=== PATIENT | male | born 1970 | race African-American/Black ===

== ENCOUNTER 2021-05-06 14:59 | Inpatient (IN) | payer MEDICARE ==
[~2021-05-06] VITALS: Ht 175.3 cm; Wt 59.8 kg
[2021-05-06 15:49] LABS: BASO # 0.1 x10^3/uL (0.0-0.2); BASO % 1 % (0-3); EOS # 0.3 x10^3/uL (0.0-0.7); EOS % 3 % (0-3); HEMATOCRIT 21.4 % (39.0-53.0); LYMPH # 0.3 x10^3/uL (1.0-4.8); LYMPH % 3 % (24-48); MEAN CORPUSCULAR HEMOGLOBIN 26 pg (25-35); MEAN CORPUSCULAR HGB CONC 29 g/dL (31-37); MEAN CORPUSCULAR VOLUME 88 fL (79-100); MONO # 0.5 x10^3/uL (0.0-1.1); MONO % 6 % (0-9); NEUT # 8.3 x10^3/uL (1.8-7.7); NEUT % 88 % (31-73); PLATELET COUNT 402 x10^3/uL (140-400); RED BLOOD COUNT 2.44 x10^6/uL (4.30-5.70); RED CELL DISTRIBUTION WIDTH 19.1 % (11.5-14.5); WHITE BLOOD COUNT 9.5 x10^3/uL (4.0-11.0)
[2021-05-06 15:52] LABS: HEMOGLOBIN 6.2 g/dL (13.0-17.5)
[2021-05-06 15:55] LABS: ALBUMIN 2.5 g/dL (3.4-5.0); ALBUMIN/GLOBULIN RATIO 0.8 (1.0-1.7); CALCIUM 8.5 mg/dL (8.5-10.1); CREATININE 1.4 mg/dL (0.7-1.3); POTASSIUM 4.6 mmol/L (3.5-5.1); TOTAL BILIRUBIN 0.2 mg/dL (0.2-1.0); TOTAL PROTEIN 5.7 g/dL (6.4-8.2)
--- NOTE | 2021-05-06 16:07 | RAD ---
EXAM: Chest, single view. HISTORY: Shortness of air. COMPARISON: None. FINDINGS: A frontal view of the chest is obtained. There is diffuse interstitial infiltrate. There is no consolidation, pleural effusion or pneumothorax. There is a prominent cardiac silhouette. IMPRESSION: Diffuse interstitial infiltrate. Electronically signed by: Kerri Amador MD (05/06/2021 4:04 PM) [facility]
--- NOTE | 2021-05-06 16:20 | PDOC1 ---
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 He notes due to his recurrent epistaxis has a blood transfusion every 2 weeks. He last had his hemoglobin checked in [place] about the first week of April and it was 7.2 at that time. He denie s any rectal bleeding, nausea, vomiting, diarrhea, chest pain, palpitations, fever, cough, extremity edema, hematuria, back pain, rash, or body aches. Patient states he feels like he does when his hemoglobin is too low. He currently denies any pain. He has had extensive work-up and does not have any pulmonary or gastrointestinal telangiectasias, only nasal. He does not know his hepatic status. He notes he was going to start on bevacizumab therapy at [facility] but while in [place] he tested positive for COVID-19 on 03/30/2021. He notes he is fully vaccinated and had his booster but he was fairly symptomatic for several days did not require hospital admission or become hypoxic and he has been recuperating with his sister in [place] since then. He is originally from [facility]. 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 He does note at age 14 he started developing seizures and did have a left frontoparietal craniotomy and notes he has not had a seizure since then. Was never on antiepileptics as an adult. WBC 9.5, Hb 6.2, platelets 402, NA 145, K4.6, BUN 18, CR 1.4, glucose 103, calcium 8.5, bilirubin 0.2, AST 13, ALT 18, alkaline phosphatase 58, albumin 2.5, high-sensitivity troponin is 15 EKG appears sinus rate of 88 bpm some PVCs leftward axis no ST segment elevations or T WI QTc 446 otherwise normal intervals. Admitted for further care Past Medical History ENT: Other (Epistaxis, teleangiectasias) Past Surgical History Past Surgical History Left craniotomy 1985, Nasal surgery x8 Family History Family History HHT in his daughter Family History: Hypertension Social History Smoke: <1 pack per day ALCOHOL: none Drugs: None Allergies Allergies: Coded Allergies: No Known Drug Allergies (Unverified , 05/06/21) ROS General: YES: Fatigue, Malaise; No: Chills, Night Sweats, Appetite, Other PSYCHOLOGICAL ROS: No: Anxiety, Behavioral Disorder, Concentration difficultie, Decreased libido, Depression, Disorientation, Hallucinations, Hostility, Irritablity, Memory difficulties, Mood Swings, Obsessive thoughts, Physical abuse, Sexual abuse, Sleep disturbances, Suicidal ideation, Other Eyes: No Blurry vision, No Decreased vision, No Double vision, No Dry eyes, No Excessive tearing, No Eye Pain, No Itchy Eyes, No Loss of vision, No Photophobia, No Scotomata, No Uses contacts, No Uses glasses, No Other HEENT: YES: Nasal congestion, Nasal discharge, Epistaxis; No: Heacaches, Visual Changes, Hearing change, Oral lesions, Sinus pain, Sore Throat, Sneezing, Snoring, Tinnitus, Vertigo, Vocal changes, Other ALLERGY AND IMMUNOLOGY: No: Hives, Insect Bite Sensitivity, Itchy/Watery Eyes, Nasal Congestion, Post Nasal Drip, Seasonal Allergies, Other Hematological and Lymphatic: No: Bleeding Problems, Blood Clots, Blood Transfusions, Brusing, Night Sweats, Pallor, Swollen Lymph Nodes, Other ENDOCRINE: No: Breast Changes, Galactorrhea, Hair Pattern Changes, Hot Flashes, Malaise/lethargy, Mood Swings, Palpitations, Polydipsia/polyuria, Skin Changes, Temperature Intolerance, Unexpected Weight Changes, Other Breast: No New/Changing Breast Lumps, No Nipple changes, No Nipple discharge, No Other Respiratory: No: Cough, Hemoptysis, Orthopnea, Pleuritic Pain, Shortness of breath, SOB with excertion, Sputum Changes, Stridor, Tachypnea, Wheezing, Other Cardiovascular: No Chest Pain, No Palpitations, No Orthopnea, No Paroxysmal Noc. Dyspnea, No Edema, No Lt Headedness, No Other Gastrointestinal: No Nausea, No Vomiting, No Abdominal Pain, No Diarrhea, No Constipation, No Melena, No Hematochezia, No Other Genitourinary: No Dysuria, No Frequency, No Incontinence, No Hematuria, No Retention, No Discharge, No Urgency, No Pain, No Flank Pain, No Other, No , No , No , No , No , No , No Musculoskeletal: No Gait Disturbance, No Joint Pain, No Joint Stiffness, No Joint Swelling, No Muscle Pain, No Muscular Weakness, No Pain In:, No Swelling In:, No Other Neurological: No Behavorial Changes, No Bowel/Bladder ControlChng, No Confusion, No Dizziness, No Gait Disturbance, No Headaches, No Impaired Coord/balance, No Memory Loss, No Numbness/Tingling, No Seizures, No Speech Problems, No Tremors, No Visual Changes, No Weakness, No Other Skin: No Dry Skin, No Eczema, No Hair Changes, No Lumps, No Mole Changes, No Mottling, No Nail Changes, No Pruritus, No Rash, No Skin Lesion Changes, No Other, No Acne Vitals Vitals Vital Signs Date Time Temp Pulse Resp B/P (MAP) Pulse Ox O2 Delivery O2 Flow Rate FiO2 05/06/21 15:04 98.4 97 18 140/69 (92) 100 Room Air 98.4 Labs Labs Laboratory Tests Test 05/06/21 15:35 White Blood Count 9.5 x10^3/uL (4.0-11.0) Red Blood Count 2.44 x10^6/uL (4.30-5.70) Hemoglobin 6.2 g/dL (13.0-17.5) Hematocrit 21.4 % (39.0-53.0) Mean Corpuscular Volume 88 fL (79-100) Mean Corpuscular Hemoglobin 26 pg (25-35) Mean Corpuscular Hemoglobin Concent 29 g/dL (31-37) Red Cell Distribution Width 19.1 % (11.5-14.5) Platelet Count 402 x10^3/uL (140-400) Neutrophils (%) (Auto) 88 % (31-73) Lymphocytes (%) (Auto) 3 % (24-48) Monocytes (%) (Auto) 6 % (0-9) Eosinophils (%) (Auto) 3 % (0-3) Basophils (%) (Auto) 1 % (0-3) Neutrophils # (Auto) 8.3 x10^3/uL (1.8-7.7) Lymphocytes # (Auto) 0.3 x10^3/uL (1.0-4.8) Monocytes # (Auto) 0.5 x10^3/uL (0.0-1.1) Eosinophils # (Auto) 0.3 x10^3/uL (0.0-0.7) Basophils # (Auto) 0.1 x10^3/uL (0.0-0.2) Sodium Level 145 mmol/L (136-145) Potassium Level 4.6 mmol/L (3.5-5.1) Chloride Level 111 mmol/L (98-107) Carbon Dioxide Level 22 mmol/L (21-32) Anion Gap 12 (6-14) Blood Urea Nitrogen 18 mg/dL (8-26) Creatinine 1.4 mg/dL (0.7-1.3) Estimated GFR (Cockcroft-Gault) 53.0 BUN/Creatinine Ratio 13 (6-20) Glucose Level 103 mg/dL (70-99) Calcium Level 8.5 mg/dL (8.5-10.1) Total Bilirubin 0.2 mg/dL (0.2-1.0) Aspartate Amino Transf (AST/SGOT) 13 U/L (15-37) Alanine Aminotransferase (ALT/SGPT) 18 U/L (16-63) Alkaline Phosphatase 58 U/L (46-116) Troponin I High Sensitivity 15 ng/L (4-75) Total Protein 5.7 g/dL (6.4-8.2) Albumin 2.5 g/dL (3.4-5.0) Albumin/Globulin Ratio 0.8 (1.0-1.7) Laboratory Tests Test 05/06/21 15:35 White Blood Count 9.5 x10^3/uL (4.0-11.0) Red Blood Count 2.44 x10^6/uL (4.30-5.70) Hemoglobin 6.2 g/dL (13.0-17.5) Hematocrit 21.4 % (39.0-53.0) Mean Corpuscular Volume 88 fL (79-100) Mean Corpuscular Hemoglobin 26 pg (25-35) Mean Corpuscular Hemoglobin Concent 29 g/dL (31-37) Red Cell Distribution Width 19.1 % (11.5-14.5) Platelet Count 402 x10^3/uL (140-400) Neutrophils (%) (Auto) 88 % (31-73) Lymphocytes (%) (Auto) 3 % (24-48) Monocytes (%) (Auto) 6 % (0-9) Eosinophils (%) (Auto) 3 % (0-3) Basophils (%) (Auto) 1 % (0-3) Neutrophils # (Auto) 8.3 x10^3/uL (1.8-7.7) Lymphocytes # (Auto) 0.3 x10^3/uL (1.0-4.8) Monocytes # (Auto) 0.5 x10^3/uL (0.0-1.1) Eosinophils # (Auto) 0.3 x10^3/uL (0.0-0.7) Basophils # (Auto) 0.1 x10^3/uL (0.0-0.2) Sodium Level 145 mmol/L (136-145) Potassium Level 4.6 mmol/L (3.5-5.1) Chloride Level 111 mmol/L (98-107) Carbon Dioxide Level 22 mmol/L (21-32) Anion Gap 12 (6-14) Blood Urea Nitrogen 18 mg/dL (8-26) Creatinine 1.4 mg/dL (0.7-1.3) Estimated GFR (Cockcroft-Gault) 53.0 BUN/Creatinine Ratio 13 (6-20) Glucose Level 103 mg/dL (70-99) Calcium Level 8.5 mg/dL (8.5-10.1) Total Bilirubin 0.2 mg/dL (0.2-1.0) Aspartate Amino Transf (AST/SGOT) 13 U/L (15-37) Alanine Aminotransferase (ALT/SGPT) 18 U/L (16-63) Alkaline Phosphatase 58 U/L (46-116) Troponin I High Sensitivity 15 ng/L (4-75) Total Protein 5.7 g/dL (6.4-8.2) Albumin 2.5 g/dL (3.4-5.0) Albumin/Globulin Ratio 0.8 (1.0-1.7) Images Images Chest radiograph: A frontal view of the chest is obtained. There is diffuse interstitial infiltrate. There is no consolidation, pleural effusion or pneumothorax. There is a prominent cardiac silhouette. IMPRESSION: Diffuse interstitial infiltrate. VTE Prophylaxis Ordered VTE Prophylaxis Devices: Yes VTE Pharmacological Prophylaxi: No Assessment/Plan Assessment/Plan Acute anemia - likely due to HHT. Will transfuse to maintain Hb > 7. Needs outpatient f/u HHT - with no other known lesions that nasal. Has [facility] f/u Abnormal weight loss - he is on nutritional supplements. Likely HHT related Smoker - counseled on cessation, offered nicotine replacement therapy H/o COVID19 - 03/20/2021. Recovered now. Likely etiology of abnormal CXR ?SOL - unknown renal baseline function. He notes no history of CKD, will monitor. Likely vasomotor nephropathy Severe protein calorie malnutrition - possibly from recent covid 19 FEN - Regular diet PPX - SCDs, ambulatory CODE - FULL Dispo - inpatient for above Justifications for Admission Other Justification LIZETT REDDY MD May 06, 2021 16:20
--- NOTE | 2021-05-06 16:28 | ED.ADGEN ---
Past Medical History Additional Past Medical Histor: HHT, SEVER NOSE BLEEDS Past Surgical History: Other Additional Past Surgical Histo: BRAIN SURGERY, 8 NASAL SURGERIES Smoking Status: Never Smoker Alcohol Use: None Drug Use: None General Adult EDM: Chief Complaint: SHORTNESS OF BREATH HPI: HPI: Patient is a 51 year old AA male who presents to the emergency department with complaints of shortness of breath, lightheadedness, and fatigue. Patient reports a history of HHT states that he typically has a blood transfusion every 2 weeks. He last had his hemoglobin checked in [place] about 2 weeks ago and it was 7.2 at that time. He denies any rectal bleeding, nausea, vomiting, diarrhea, chest pain, palpitations, fever, cough, extremity edema, hematuria, back pain, rash, or body aches. Patient states he feels like he does when his hemoglobin is too low. He currently denies any pain. Review of Systems: Review of Systems: Complete ROS is negative unless otherwise noted in the HPI. Allergies: Allergies: Allergies Coded Allergies Type Severity Reaction Last Updated Verified No Known Drug Allergies 05/06/21 No Physical Exam: PE: See above Constitutional: Well developed, well nourished, no acute distress, non-toxic appearance. [] HENT: Normocephalic, atraumatic, bilateral external ears normal, nose normal. [] Eyes: PERRLA, EOMI, conjunctiva normal, no discharge. [] Neck: Normal range of motion, no stridor. [] Cardiovascular:Heart rate regular rhythm, no murmur Lungs & Thorax: Respirations even and unlabored, no retractions, no respiratory distress, lungs CTA Abdomen: soft, no tenderness Skin: Warm, dry, no erythema, no rash. [] Extremities: No cyanosis, ROM intact, no edema. [] Neurologic: Alert and oriented X 3, no focal deficits noted. [] Psychologic: Affect normal, judgement normal, mood normal. [] Current Patient Data: Labs: Laboratory Tests Test 05/06/21 15:35 White Blood Count 9.5 x10^3/uL (4.0-11.0) Red Blood Count 2.44 x10^6/uL (4.30-5.70) L Hemoglobin 6.2 g/dL (13.0-17.5) *L Hematocrit 21.4 % (39.0-53.0) L Mean Corpuscular Volume 88 fL (79-100) Mean Corpuscular Hemoglobin 26 pg (25-35) Mean Corpuscular Hemoglobin Concent 29 g/dL (31-37) L Red Cell Distribution Width 19.1 % (11.5-14.5) H Platelet Count 402 x10^3/uL (140-400) H Neutrophils (%) (Auto) 88 % (31-73) H Lymphocytes (%) (Auto) 3 % (24-48) L Monocytes (%) (Auto) 6 % (0-9) Eosinophils (%) (Auto) 3 % (0-3) Basophils (%) (Auto) 1 % (0-3) Neutrophils # (Auto) 8.3 x10^3/uL (1.8-7.7) H Lymphocytes # (Auto) 0.3 x10^3/uL (1.0-4.8) L Monocytes # (Auto) 0.5 x10^3/uL (0.0-1.1) Eosinophils # (Auto) 0.3 x10^3/uL (0.0-0.7) Basophils # (Auto) 0.1 x10^3/uL (0.0-0.2) Platelet Estimate Pending Sodium Level 145 mmol/L (136-145) Potassium Level 4.6 mmol/L (3.5-5.1) Chloride Level 111 mmol/L (98-107) H Carbon Dioxide Level 22 mmol/L (21-32) Anion Gap 12 (6-14) Blood Urea Nitrogen 18 mg/dL (8-26) Creatinine 1.4 mg/dL (0.7-1.3) H Estimated GFR (Cockcroft-Gault) 53.0 BUN/Creatinine Ratio 13 (6-20) Glucose Level 103 mg/dL (70-99) H Calcium Level 8.5 mg/dL (8.5-10.1) Total Bilirubin 0.2 mg/dL (0.2-1.0) Aspartate Amino Transferase (AST) 13 U/L (15-37) L Alanine Aminotransferase (ALT) 18 U/L (16-63) Alkaline Phosphatase 58 U/L (46-116) Troponin I High Sensitivity 15 ng/L (4-75) Total Protein 5.7 g/dL (6.4-8.2) L Albumin 2.5 g/dL (3.4-5.0) L Albumin/Globulin Ratio 0.8 (1.0-1.7) L Laboratory Tests 05/06/21 15:35 Laboratory Tests 05/06/21 15:35 Vital Signs: Vital Signs Date Time Temp Pulse Resp B/P (MAP) Pulse Ox O2 Delivery O2 Flow Rate FiO2 05/06/21 15:04 98.4 97 18 140/69 (92) 100 Room Air 98.4 EKG: EK-sinus rhythm rate 88, no STEMI, read by Dr. Pedraza [] Heart Score: C/O Chest Pain: No Radiology/Procedures: Radiology/Procedures: PROCEDURE: CHEST AP ONLY EXAM: Chest, single view. HISTORY: Shortness of air. COMPARISON: None. FINDINGS: A frontal view of the chest is obtained. There is diffuse interstitial infiltrate. There is no consolidation, pleural effusion or pneumothorax. There is a prominent cardiac silhouette. IMPRESSION: Diffuse interstitial infiltrate. Electronically signed by: Kerri Amador MD (05/06/2021 4:04 PM) [facility] [] Course & Med Decision Making: Course & Med Decision Making Pertinent Labs and Imaging studies reviewed. (See chart for details) 1620-spoke with Dr. Blackman who is the admitting physician, and care was assumed following discussion of patient. Will admit patient for PUI and acute anemia. Transfuse 1 unit PRBCs has been ordered. Patient's vital signs stable. Patient remains afebrile, appears nontoxic, respirations even and unlabored. Patient will be admitted to the medical/surgical floor. Patient's case and plan of care also discussed with Dr. Pedraza. Ruba Disclaimer: Ruba Disclaimer: This electronic medical record was generated, in whole or in part, using a voice recognition dictation system. Departure Departure Impression: Primary Impression: Person under investigation for COVID-19 Additional Impression: Anemia Disposition: ADMITTED INPATIENT Admitting Physician: ANGIE (Lewis) Condition: STABLE Problem Qualifiers Additional Impression: Anemia Anemia type: acquired or hereditary hemolytic anemia Hemolytic anemia type: hereditary hemolytic anemia, unspecified Qualified Codes: D58.9 - Hereditary hemolytic anemia, unspecified ANTONIO HARDIN [employer]ING [employer] May 06, 2021 16:28
[2021-05-06 17:20] LABS: INFLUENZA A PATIENT NEGATIVE (NEGATIVE); INFLUENZA B PATIENT NEGATIVE (NEGATIVE)
--- NOTE | 2021-05-06 18:15 | EKG ---
[facility] [address] [place] [address] Test Date: 2021-05-06 Test Time: 16:04:05 Pat Name: TYREE NOBLE Department: Room: ED HOLD 20 Gender: M Regional Liaison: : 1970 Requested By: ANTONIO HARDIN Order Number: [id number] Reading MD: Fadi Bianchi MD Measurements Intervals [place] Rate: 88 P: 68 MA: 124 QRS: -1 QRSD: 74 T: 74 QT: 366 QTc: 446 Interpretive Statements SINUS RHYTHM pvc Electronically Signed On 05-14-2021 16:32:57 [employer]PING ASSOCI[employer] by Fadi Bianchi MD
[2021-05-06 18:46] LABS: % EOS 2 % (0-5); % LYMPHS 2 % (24-48); % MONOS 8 % (0-10); % SEGS 88 % (35-66); TOXIC GRANULATION SLIGHT; TOXIC VACUOLATION SLIGHT
[2021-05-06 18:47] LABS: PLT ESTIMATE INCREASED (ADEQUATE); POLYCHROMASIA MOD
[2021-05-06 18:48] LABS: ANISOCYTOSIS MOD; HYPOCHROMIA MOD; OVALOCYTES FEW
[2021-05-06 18:49] LABS: BIZZARE CELLS FEW; SCHISTOCYTES FEW
[2021-05-06 18:50] LABS: TEAR DROP CELLS MOD
[2021-05-06 19:00] VITALS: BP 135/78
[2021-05-06] MEDS ORDERED: RAMI2.5C41 PO (20:19)
[2021-05-06] MEDS ORDERED: FERR-36 PO (20:19)
[2021-05-06] MEDS ORDERED: AMOX1TAB58 PO (20:19)
[2021-05-06] MEDS: AMOXICILLIN/K CLAV 500/125MG TABLET. PO SCH (22:16)
[2021-05-06] MEDS ORDERED: C.DIFF MED SCREEN BY RX. MC ONE (22:45)
[2021-05-06 23:00] VITALS: BP 161/94
[2021-05-06] MEDS ORDERED: SODIUM CHLORIDE 0.65% NASAL SPRAY 45ML BOTTLE. NS PRN (23:00)
[2021-05-06] MEDS ORDERED: NICOTINE 7MG PATCH. TD PRN (23:00)
[2021-05-07] VITALS (12 sets, daily range): BP systolic 115–169; BP diastolic 79–94
--- NOTE | 2021-05-07 06:52 | NUR ---
Pharmacy Medication Review S: Consulted for medication review re: C.diff Risk Assessment score of 4 O: KALLIEGRACIELATYREE is a 51 year old with: Previous C.diff infection: No Previous hospitalization: Within 60 days Recent antibiotics: Within 30 days Use of gastric acid suppressor: No Transfer from NH/LTAC: No Current antibiotic regimen: AUGMENTING Current acid suppression regimen: NONE A: Patient has been identified as having risk factors for C.diff infection as noted above. P: ABX DE-ESCALATION RECOMMENDED: NO, PT HAS DOCUMENTED OR SUSPECTED INFECTION (RESOLVING PNA) PROBIOTIC ORDERED: YES PPI CHANGED TO [id number]: NO, PT NOT ON THIS THERAPY OSIEL ALMANZAR [facility], 05/07/21 [id number]
[2021-05-07] MEDS ORDERED: ACETAMINOPHEN 325 MG TABLET. PO PRN (08:00)
[2021-05-07] MEDS: AMOXICILLIN/K CLAV 500/125MG TABLET. PO SCH ×2 (08:26→20:33)
[2021-05-07] MEDS: LACTOBACILLUS RHAMNOSUS GG 1 CAPSULE. PO SCH ×2 (08:26→20:33)
[2021-05-07] MEDS ORDERED: LISINOPRIL 5 MG TABLET. PO SCH (09:00)
[2021-05-07] MEDS ORDERED: FERROUS SULFATE 325 MG TABLET. PO SCH (09:00)
[2021-05-07 11:11] LABS: HEMATOCRIT 19.3 % (39.0-53.0); RED BLOOD COUNT 2.28 x10^6/uL (4.30-5.70); RED CELL DISTRIBUTION WIDTH 19.3 % (11.5-14.5); WHITE BLOOD COUNT 7.8 x10^3/uL (4.0-11.0)
[2021-05-07 11:16] LABS: HEMOGLOBIN 5.7 g/dL (13.0-17.5)
--- NOTE | 2021-05-07 12:17 | NUR ---
SW following. Discussed with RN, pt from home, room air, regular diet, COVID-19 negative. Pt needing blood transfusion for low hgb. Dr. Torrez following. RN advised no SW needs at this time. SW will continue to follow.
--- NOTE | 2021-05-07 13:46 | PDOC ---
[employer] PROGRESS NOTE Date of Service DOS: DATE: 05/07/21 TIME: 13:44 Chief Complaint Chief Complaint Assessment/Plan Acute anemia - likely due to HHT. Will transfuse to maintain Hb > 7. Needs outpatient f/u HHT - with no other known lesions that nasal. Has [facility] f/u Abnormal weight loss - he is on nutritional supplements. Likely HHT related Smoker - counseled on cessation, offered nicotine replacement therapy H/o COVID19 - 03/20/2021. Recovered now. Likely etiology of abnormal CXR ?SOL - unknown renal baseline function. He notes no history of CKD, will monitor. 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 He notes due to his recurrent epistaxis has a blood transfusion every 2 weeks. He last had his hemoglobin checked in [place] about the first week of April and it was 7.2 at that time. He denies any rectal bleeding, nausea, vomiting, diarrhea, chest pain, palpitations, fever, cough, extremity edema, hematuria, back pain, rash, or body aches. Patient states he feels like he does when his hemoglobin is too low. He currently denies any pain. He has had extensive work-up and does not have any pulmonary or gastrointestinal telangiectasias, only nasal. He does not know his hepatic status. He notes he was going to start on bevacizumab therapy at [facility] but while in [place] he tested positive for COVID-19 on 03/30/2021. He notes he is fully vaccinated and had his booster but he was fairly symptomatic for several days did not require hospital admission or become hypoxic and he has been recuperating with his sister in [place] since then. He is originally from [facility]. 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 He does note at age 14 he started developing seizures and did have a left frontoparietal craniotomy and notes he has not had a seizure since then. Was never on antiepileptics as an adult. WBC 9.5, Hb 6.2, platelets 402, NA 145, K4.6, BUN 18, CR 1.4, glucose 103, calcium 8.5, bilirubin 0.2, AST 13, ALT 18, alkaline phosphatase 58, albumin 2 .5, high-sensitivity troponin is 15 EKG appears sinus rate of 88 bpm some PVCs leftward axis no ST segment elevations or T WI QTc 446 otherwise normal intervals. 05/07 Patient evaluated examined at bedside. Hemoglobin still low still having some lightheadedness and fatigue. Waiting on transfusion. Hematology consulted. Continue current plan. Will evaluate again after transfusion. Vitals/I&O Vitals/I&O: Vital Signs Date Time Temp Pulse Resp B/P (MAP) Pulse Ox O2 Delivery O2 Flow Rate FiO2 05/07/21 11:00 97.8 93 18 145/82 (103) 98 97.8 05/07/21 07:34 Room Air I & O 05/06/21 05/06/21 05/07/21 15:00 23:00 07:00 Intake Total 250 ml 540 ml Balance 250 ml 540 ml Physical Exam General: Alert, Oriented X3, Cooperative Heart: Regular rate Lungs: Clear Abdomen: Normal bowel sounds, Soft, No tenderness Extremities: No edema, Normal pulses Skin: No significant lesion Labs Labs: Laboratory Tests Test 05/06/21 15:35 05/06/21 16:47 05/07/21 10:46 White Blood Count 9.5 x10^3/uL (4.0-11.0) 7.8 x10^3/uL (4.0-11.0) Red Blood Count 2.44 x10^6/uL (4.30-5.70) 2.28 x10^6/uL (4.30-5.70) Hemoglobin 6.2 g/dL (13.0-17.5) 5.7 g/dL (13.0-17.5) Hematocrit 21.4 % (39.0-53.0) 19.3 % (39.0-53.0) Mean Corpuscular Volume 88 fL (79-100) 85 fL (79-100) Mean Corpuscular Hemoglobin 26 pg (25-35) 25 pg (25-35) Mean Corpuscular Hemoglobin Concent 29 g/dL (31-37) 30 g/dL (31-37) Red Cell Distribution Width 19.1 % (11.5-14.5) 19.3 % (11.5-14.5) Platelet Count 402 x10^3/uL (140-400) 398 x10^3/uL (140-400) Neutrophils (%) (Auto) 88 % (31-73) Lymphocytes (%) (Auto) 3 % (24-48) Monocytes (%) (Auto) 6 % (0-9) Eosinophils (%) (Auto) 3 % (0-3) Basophils (%) (Auto) 1 % (0-3) Neutrophils # (Auto) 8.3 x10^3/uL (1.8-7.7) Lymphocytes # (Auto) 0.3 x10^3/uL (1.0-4.8) Monocytes # (Auto) 0.5 x10^3/uL (0.0-1.1) Eosinophils # (Auto) 0.3 x10^3/uL (0.0-0.7) Basophils # (Auto) 0.1 x10^3/uL (0.0-0.2) Segmented Neutrophils % 88 % (35-66) Lymphocytes % 2 % (24-48) Monocytes % 8 % (0-10) Eosinophils % 2 % (0-5) Toxic Granulation Slight Toxic Vacuolation Slight Platelet Estimate Increased (ADEQUATE) Large Platelets Few Polychromasia Mod Hypochromasia Mod Anisocytosis Mod Tear Drop Cells Mod Ovalocytes Few Schistocytes Few RBC Morphology Bizarre Forms Few Sodium Level 145 mmol/L (136-145) Potassium Level 4.6 mmol/L (3.5-5.1) Chloride Level 111 mmol/L (98-107) Carbon Dioxide Level 22 mmol/L (21-32) Anion Gap 12 (6-14) Blood Urea Nitrogen 18 mg/dL (8-26) Creatinine 1.4 mg/dL (0.7-1.3) Estimated GFR (Cockcroft-Gault) 53.0 BUN/Creatinine Ratio 13 (6-20) Glucose Level 103 mg/dL (70-99) Calcium Level 8.5 mg/dL (8.5-10.1) Total Bilirubin 0.2 mg/dL (0.2-1.0) Aspartate Amino Transf (AST/SGOT) 13 U/L (15-37) Alanine Aminotransferase (ALT/SGPT) 18 U/L (16-63) Alkaline Phosphatase 58 U/L (46-116) Troponin I High Sensitivity 15 ng/L (4-75) Total Protein 5.7 g/dL (6.4-8.2) Albumin 2.5 g/dL (3.4-5.0) Albumin/Globulin Ratio 0.8 (1.0-1.7) Coronavirus (COVID-19)(PCR) Not detected (NOT DETECTD) Influenza Type A Antigen Negative (NEGATIVE) Influenza Type B Antigen Negative (NEGATIVE) SARS-CoV-2 Antigen (Rapid) Negative (NEGATIVE) Absolute Reticulocyte Count 0.172 x10^6/uL (0.020-0.120) Percent Reticulocyte Count 7.6 % (0.5-2.3) Immature Reticulocyte Fraction 0.66 (0.20-0.60) Iron Level 235 ug/dL (65-175) Total Iron Binding Capacity 239 ug/dL (250-450) Iron Saturation 98 % (15-34) Ferritin 44 ng/mL (26-388) Vitamin B12 Level 385 pg/mL (247-911) Assessment and Plan Assessmemt and Plan Problems Medical Problems: (1) Anemia Status: Acute (2) Person under investigation for COVID-19 Status: Acute Comment Review of Relevant I have reviewed the following items artie (where applicable) has been applied. Medications: Current Medications Medications (Trade) Dose Ordered Sig/Grady Route PRN Reason Start Time Stop Time Status Last Admin Dose Admin Amoxicillin/ Clavulanate Potassium (Augmentin 500/ 125mg) 1 tab BID PO 05/06/21 21:00 05/07/21 08:26 Ferrous Sulfate (Feosol) 325 mg DAILY PO 05/07/21 09:00 05/07/21 08:26 Lisinopril (Prinivil) 5 mg DAILY PO 05/07/21 09:00 05/07/21 08:27 Nicotine (Nicoderm Cq 7mg) 1 patch PRN DAILY PRN TD SMOKING CESSATION 05/06/21 23:00 05/06/21 23:13 Sodium Chloride (Saline Mist Nasal) 1 alhaji PRN Q1HR PRN NS NASAL CONGESTION 05/06/21 23:00 05/06/21 23:11 Lactobacillus Rhamnosus (Culturelle) 1 cap BID PO 05/07/21 09:00 05/07/21 08:26 Acetaminophen (Tylenol) 650 mg PRN Q4HRS PRN PO MILD PAIN / TEMP > 100.3'F 05/07/21 08:00 05/07/21 08:27 Justifications for Admission Other Justification LIZETT ALMANZAR MD May 07, 2021 13:46
--- NOTE | 2021-05-07 21:30 | NUR ---
Patient up to restroom and had a 50-100 ml nose bleed in restroom. Lab her to do repeat HGB.
[2021-05-07 21:46] LABS: HEMATOCRIT 24.6 % (39.0-53.0); HEMOGLOBIN 7.7 g/dL (13.0-17.5)
--- NOTE | 2021-05-07 22:16 | NUR ---
Patient's HGB 7.7, Patient had a nose bleed of 50-[address] Cr's service to return call regarding need to still discharge Patient.
--- NOTE | 2021-05-07 22:42 | NUR ---
Dr. Cr returned call and stated he would prefer Patient stay overnight. Dr. Cr stated if Patient wants to talk to him let him Know and if Patient wants to leave he may. Spoke with Patient and he stated he wanted to talk with Dr. Cr. Dr. Cr paged.
--- NOTE | 2021-05-07 22:47 | NUR ---
Dr. Cr returned call and Patient on phone talking with Dr. Cr.
--- NOTE | 2021-05-07 22:50 | NUR ---
Dr. Cr called and stated Patient can discharge to home with F/U labs in 2-3 days, no new medications. Dr. Cr stated he would put in discharge orders in one hour and call Patient directly with any changes.
--- NOTE | 2021-05-07 23:31 | NUR ---
Patient's phone was so Vinod unable to call sister. Record Pressman found and phone charged, Patient able to get a hold of sister and she stated she would be here in an hour.
--- NOTE | 2021-05-08 | NUR ---
Discharge teaching done and copy given to Patient. Saline lock was discontinued prior to discharge. Patient escorted to emergency room exit with Marie NAVA to sisters car with all belongings.
== END 2021-05-08 | disposition home or self-care (01) | DRG 299 ==
LOC: ER 14:59 → ED HOLD 16:00 → 5 NORTH 18:36
PROVIDERS: ADMIT Internal Medicine; ATTEND Internal Medicine
PROC: 30233N1 Transfusion of Nonautologous Red Blood Cells into Peripheral Vein, Percutaneous Approach (ICD-10-PCS; principal; 2021-05-07)
DX: I78.0 Hereditary hemorrhagic telangiectasia (principal); N17.0 Acute kidney failure with tubular necrosis; E43 Unspecified severe protein-calorie malnutrition; Z68.1 Body mass index [BMI] 19.9 or less, adult; D64.9 Anemia, unspecified; F17.210 Nicotine dependence, cigarettes, uncomplicated; Z20.822 Contact with and (suspected) exposure to COVID-19; Z82.49 Family history of ischemic heart disease and other diseases of the circulatory system
CPT/HCPCS: 36415; 36430; 71045; 80053; 82607; 82728; 83540; 83550; 84484; 85007; 85014; 85018; 85025; 85027; 85045; 86850; 86870; 86900; 86901; 86920; 86922; 87428; 93005; 99406; P9016; U0003; 99285-25; G0378